=== PATIENT | female | born 1935 | race Caucasian/White ===

== ENCOUNTER 2019-04-24 14:05 | Outpatient (CLI) | payer OTHER, SELFPAY ==
--- NOTE | 2019-04-24 14:09 | ECG_ITS ---
Measurements Intervals [place] Rate: 78 P: 38 IA: 184 QRS: -3 QRSD: 90 T: 30 QT: 368 QTc: 422 Interpretive Statements SINUS RHYTHM DELAYED PRECORDIAL R/S TRANSITION VOLTAGE CRITERIA FOR LVH MINIMAL Q WAVES- LATERAL LEADS BASELINE ARTIFACT- I, II, III, AVR, AVL, AVF BORDERLINE ECG Electronically Signed On 04-24-2019 14:29:31 BEEF SPLITTER by Khadar Jalloh D.O.
[2019-04-24 14:45] LABS: Blood Urea Nitrogen 21 mg/dL (7-17); Calcium 9.2 mg/dL (8.4-10.2); Carbon Dioxide 31 mmol/L (22-30); Chloride 100 mmol/L (98-107); Estimated Glomerular Filt Rate 60; Glucose 114 mg/dL (65-105); Potassium 4.2 mmol/L (3.4-5.0); Sodium 139 mmol/L (137-145)
== END 2019-04-24 14:06 | disposition home or self-care (01) ==
LOC: ANHSURGERY 14:09
PROVIDERS: Anesthesiology; Visit Provider Plastic Surgery
DX: I10 Essential (primary) hypertension (principal); Z79.899 Other long term (current) drug therapy; R94.31 Abnormal electrocardiogram [ECG] [EKG]
CPT/HCPCS: 36415; 80048; 93005

== ENCOUNTER 2019-05-02 00:16 | Day surgery (SDC) | payer OTHER, SELFPAY ==
[2019-04-13 13:02] VITALS: BMI 29.2
--- NOTE | 2019-05-01 21:13 | HP_ITS ---
DATE OF SERVICE: 05/02/2019 DIAGNOSIS: Bilateral carpal tunnel syndrome. HISTORY: The patient is 83. She was referred with a nerve conduction test from November 2018, indicating moderate right carpal tunnel syndrome. She has had the left side operated in 2013. She does not recall making actual improvement after the 2013, surgery and now she has similar symptoms in both hands, which she finds uncomfortable and which are diagnosed as carpal tunnel syndrome. The recent nerve conduction test was only done on the right side. After discussing her complaints, we elected to proceed with a right carpal tunnel release and she understands the risks and possible complications such as infection, nerve injury, numbness, slow recovery to a premorbid condition or no recovery hematoma, bruising. She would like to proceed. ALLERGIES: SHE HAS AN ALLERGY TO PENICILLIN, ERYTHROMYCIN, AND SHE SAYS ALL OF THE OMEPRAZOLE. MEDICATIONS: Current medicines include levothyroxine, losartan, and doxycycline, which she takes for rosacea and indapamide and Restasis. Prior surgeries include the left carpal tunnel release, several D and Cs, and hammertoe repair. She is a nonsmoker. She says she has had very, very mild case of shingles. She has a keloid on scar somewhere. 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 She has a history of blood clots, dry eye, hearing loss. FAMILY HISTORY: Noncontributory. SOCIAL HISTORY: She lives in [place]. She is retired. Does not list a spouse. PHYSICAL EXAMINATION: GENERAL: She is in no distress. VITAL SIGNS: She is cooperative and informative. She is 5 feet 7 inches, weighs 193 pounds. HEENT: Unremarkable. CHEST: Clear to auscultation. HEART: Regular rate and rhythm by palpation ABDOMEN: Soft, nontender. EXTREMITIES: Specifically reveals on the right Tinel'S at the wrist. Froment's test positive. Provocative pain in the forearm. Tinel's somewhat at the elbow and the wrist. Compression test was positive. She has similar findings on the left side. DIAGNOSIS: Bilateral carpal tunnel syndrome. PLAN: Right open carpal tunnel release under MAC anesthetic. D I MT: Nathalie
[2019-05-02 07:08] VITALS: BP 141/57; PULSE 66; RESP 20; TEMP 36.6; O2SAT 97
[2019-05-02] MEDS: LACTATED RINGERS 1,000 ML 30 ML IV CONT (07:15)
--- NOTE | 2019-05-02 07:19 | WPDHPUPDATE1 ---
History and Physical Update Update Date/Time: 05/02/19 07:19 History and Physical has been reviewed, including an updated exam of the patient. There are NO changes in the patient's condition. Risks, benefits, and alternatives have been discussed and questions answered. Patient agrees to proceed with procedure.
--- NOTE | 2019-05-02 07:26 | WPDANESEPPF ---
Anes - Initial Pre Proc Eval Procedure: Operation Date: 05/02/19 09:15 Proposed Procedures p Right Open Carpal Tunnel Release - Andry Del Cid MD Date/Time: 05/02/19 07:26 Surgeon: Andry Del Cid MD Pre Op Diagnosis: Right Carpal Tunnel Syndrome Patient Data Age: 83 Gender: F Height: 1.71 m Weight: 86.4 kg Last Vital Signs Temp 36.6 C 05/02/19 07:08 Pulse 66 05/02/19 07:08 Resp 20 05/02/19 07:08 BP 141/57 H 05/02/19 07:08 Pulse Ox 97 05/02/19 07:08 Allergies Allergy/AdvReac Type Severity Reaction Status Date / Time erythromycin base AdvReac Mild Nausea Unverified 05/02/19 07:02 esomeprazole AdvReac Mild Nausea and Unverified 05/02/19 07:02 Vomiting and diarrhea Penicillins AdvReac Mild Rash Unverified 05/02/19 07:02 Home Medications Medication Instructions Recorded Confirmed Type acetaminophen [Tylenol Arthritis 1,300 mg PO DAILY PRN 04/13/19 05/02/19 History Pain] coQ10 (ubiquinol) 200 mg PO DAILY 04/13/19 05/02/19 History doxycycline hyclate 20 mg PO Q12H 04/13/19 05/02/19 History glucosamine sulfate [Glucosamine] 500 mg PO TID 04/13/19 05/02/19 History indapamide 1.25 mg PO DAILY 04/13/19 05/02/19 History krill oil 500 mg PO BID 04/13/19 05/02/19 History lactobacillus combination no.4 3,000 mmu cells PO DAILY 04/13/19 05/02/19 History [Probiotic] levothyroxine 88 mcg PO DAILY 04/13/19 05/02/19 History losartan 100 mg PO DAILY 04/13/19 05/02/19 History vitamin E 400 unit PO DAILY 04/13/19 05/02/19 History Patient hx anesthesia problems: none Family hx anesthesia problems: none PMFSH Past Medical History Medical History (Updated 05/01/19 @ 09:15 by Fabian Chery DO) Chronic bronchitis Hypertension Hypothyroidism Osteoarthritis Surgical History Surgical History (Updated 05/01/19 @ 09:15 by EYAD Smith History of tonsillectomy Social History Social History Gender identity (if verbalized by the patient): Female Anes - Eval Final PreProcedure Day of Procedure 05/02/19 07:26 Patient weight: overweight Heart: regular rate and rhythm Lungs: clear to auscultation and normal air movement Airway: Mallampati scale class II Neurological: alert and oriented Last oral intake: >/= 8 hours ASA classification: III Emergent: no Anesthetic plan: proceed Anesthesia type and monitoring: general GIVS and standard monitoring Informed Consent: The patient's anesthetic plan and its attendant risks and benefits were discussed with the patient/family/POA. Questions were solicited and answers provided to the satisfaction of the patient/family/POA.
[2019-05-02] MEDS: LIDO 1%/EPINEPHRINE 1:100,000 20 ML VIAL 4 ML INFILTRATE (07:53)
--- NOTE | 2019-05-02 07:57 | P.OPB_ITS ---
Procedure Note - Brief Procedure Note - Brief Date of procedure: 05/02/19 Pre-op diagnosis: Right Carpal Tunnel Syndrome Post-op diagnosis: same Procedure performed: R OCTR Anesthesia: MAC Surgeon: Andry Del Cid MD Family Law Attorney: Arcenio Estimated blood loss (mL): 0 Tourniquet time (min): 8 Drains: No Packing: No Pathology: none sent Complications: No immediate complications Condition: stable Disposition: same day
[2019-05-02 08:00] VITALS: BP 98/52; PULSE 62; RESP 14; O2SAT 93
--- NOTE | 2019-05-02 08:13 | P.OP_ITS ---
Procedure Note - Detailed Date of procedure: 05/02/19 Pre-op diagnosis: Right Carpal Tunnel Syndrome Post-op diagnosis: same Procedure performed: Right open carpal tunnel release. Description of procedure: The appropriate extremity was marked while the patient was in holding area. She was taken to the operating room and placed supine on the operating table. A time-out was held and confirmed. She was given IV sedation as the extremity was prepped and draped in usual fashion. The site was remarked for the incision and locally infiltrated with 1% lidocaine with epinephrine. The tourniquet was elevated to 250 mmHg. The incision was made in the palm as marked. Dissection was carried bluntly through the subcutaneous tissue to the palmar fascia. This and the carpal ligament were incised with a 15. Blade. Under 3 point retraction the ligament was divided distally and proximally for complete release. There was no unusual anatomy. The skin was closed with interrupted 5 0 nylon suture. The usual bandage with Wu wrap was applied. The tourniquet was released. She was discharged with instructions in wound care and follow-up and a prescription for tramadol 50 mg 8. . Surgeon: Andry Del Cid MD Radio Television Announcer: Arcenio
[2019-05-02 08:25] VITALS: BP 108/89; PULSE 64; RESP 14; O2SAT 94
[2019-05-02 08:50] VITALS: BP 135/59; PULSE 56; RESP 14
== END 2019-05-02 09:01 | disposition home or self-care (01) ==
PROVIDERS: Visit Provider Plastic Surgery
PROC: (CPT 64721; principal; 2019-05-02 09:15)
DX: G56.01 Carpal tunnel syndrome, right upper limb (principal); I10 Essential (primary) hypertension; E03.9 Hypothyroidism, unspecified; M19.90 Unspecified osteoarthritis, unspecified site
CPT/HCPCS: 64721; A9270; J1100; J1940; J2405; J2704; J7120

== ENCOUNTER 2021-07-10 10:47 | Emergency (ER) | payer OTHER, SELFPAY ==
[2021-07-10 10:57] VITALS: BP 184/81; PULSE 73; RESP 16; TEMP 36.4; O2SAT 98
--- NOTE | 2021-07-10 10:58 | ED.EXTPRO ---
HPI - Extremity Problem General Chief complaint: Extremity Problem,Nontraumatic Stated complaint: Lt Great Toe Pain Time Seen by Provider: 07/10/21 10:58 Source: patient, RN notes reviewed and old records reviewed Mode of arrival: ambulatory Limitations: no limitations History of Present Illness HPI Narrative: 86-year-old female presents to [facility] with left great toe pain which she describes as feeling like she has electric shock in her great toe. Patient states she has had this off and on for about a year and last night she was unable to rest due to her discomfort. She relays history of spinal stenosis, herniated disc in her lumbar region bone, spurs in her back and history of peripheral neuropathy. She sees podiatry every few months to have her toenails trimmed denies any history of diabetes no known history of gout or any recent or past injury to her left great toe. Patient has had nail removed from left great toe. Patient takes Tylenol arthritis for her discomfort daily. MD Complaint: extremity pain Onset (ago): year(s) (States for about 1 year with increased pain 1 day) Pain Consistency: intermittent and colicky Location: left and toe (Great toe) Severity scale (1-10): 8 Quality: burning and stabbing Radiation: none Relieving factors: nothing Exacerbating factors: nothing Associated symptoms: denies other symptoms Context: other (neuropathy to feet, history of spinal stenosis) Related Data Home Medications Medication Instructions Recorded Confirmed Probiotic 3,000 mmu cells PO DAILY 04/13/19 07/10/21 acetaminophen [Tylenol Arthritis 1,300 mg PO DAILY PRN 04/13/19 07/10/21 Pain] coQ10 (ubiquinol) 200 mg PO DAILY 04/13/19 07/10/21 glucosamine sulfate [Glucosamine] 500 mg PO TID 04/13/19 07/10/21 indapamide 1.25 mg PO DAILY 04/13/19 07/10/21 krill oil 500 mg PO BID 04/13/19 07/10/21 levothyroxine 88 mcg PO DAILY 04/13/19 07/10/21 losartan 100 mg PO DAILY 04/13/19 07/10/21 vitamin E 400 unit PO DAILY 04/13/19 07/10/21 cyclosporine [Restasis] 2 drp EACH EYE DAILY 07/10/21 07/10/21 Allergies Allergy/AdvReac Type Severity Reaction Status Date / Time erythromycin base AdvReac Mild Nausea Verified 07/10/21 10:52 esomeprazole AdvReac Mild Nausea and Verified 07/10/21 10:52 Vomiting and diarrhea Penicillins AdvReac Mild Rash Verified 07/10/21 10:52 Review of Systems Review of Systems: CONSTITUTIONAL: Denies fever, chills, or sweats. EYES: Denies visual changes, redness, or discharge. ENT: Denies rhinorrhea, congestion, sore throat, or otalgia. CARDIOVASCULAR: Denies chest pain, palpitations, or edema. RESPIRATORY: Denies cough or dyspnea. GASTROINTESTINAL: Denies abdominal pain, nausea, vomiting, or diarrhea. Reports some constipation GENITOURINARY: Denies dysuria or hematuria. SKIN: Denies rash or itching. MUSCULOSKELETAL: Chronic back pain, left great toe pain, or myalgia. NEUROLOGIC: Denies headache, numbness, or weakness. Peripheral neuropathy lower extremities PSYCHIATRIC: Denies anxiety or depression. Is anxious All systems reviewed & are unremarkable except as noted in HPI and below PMFSH Past Medical History Medical History (Updated 07/11/21 @ 00:00 by [facility] Dawoo) Chronic back pain Chronic bronchitis History of IBS Hypertension Hypothyroidism Kidney stones Osteoarthritis Peripheral neuropathy Uterine polyp removed Surgical History Surgical History (Updated 07/10/21 @ 11:51 by Gianna Fuentes NP) History of local excision of skin lesion History of tonsillectomy S/P arthroscopic surgery of left knee Family History Family History (Updated 07/10/21 @ 11:52 by Gianna Fuentes NP) Other Cancer Cerebrovascular accident Diabetes mellitus Social History Social History (Updated 07/10/21 @ 11:52 by Gianna Fuentes NP) Smoking status: Former smoker Additional smoking assessment comments: quit 60 years ago Alcohol intake: current Alcohol use details:
[2021-07-10 11:18] VITALS: BP 160/78
== END 2021-07-10 11:25 | disposition home or self-care (01) ==
PROVIDERS: Emergency Provider Registered Nurse; PCP Internal Medicine
DX: M79.675 Pain in left toe(s) (principal); G62.9 Polyneuropathy, unspecified; Z87.891 Personal history of nicotine dependence; I10 Essential (primary) hypertension; E03.9 Hypothyroidism, unspecified; M19.90 Unspecified osteoarthritis, unspecified site
CPT/HCPCS: 99213; G0463

== ENCOUNTER 2022-08-14 10:19 | Emergency (ER) | payer OTHER, SELFPAY ==
--- NOTE | 2022-08-14 10:31 | ED.LOWEXIN ---
HPI - Extremity Injury (Lower) General Chief Complaint: Extremity Problem,Nontraumatic Stated Complaint: toe discomfort Time Seen by Provider: 08/14/22 10:32 Source: patient Mode of arrival: ambulatory Limitations: no limitations History of Present Illness HPI Narrative: Patient is a 87-year-old female that presents with left big toe wound. Patient states last she picked the scab off and had a large amount of pus drained from wound. Patient saw pricing intern on Tuesday and was told to wash foot twice a day with warm soapy water and apply antibiotic ointment. Patient has been doing that since. Patient states last night she woke up with toe pain and medial toe redness. Concern for worsening infection. Denies any drainage from toe, swelling or red streaking up toe or foot at this time. Denies any fever chills. Related Data Home Medications Medication Instructions Recorded Confirmed glucosamine sulfate 500 mg tablet 500 mg PO TID 04/13/19 08/14/22 (Glucosamine) indapamide 1.25 mg tablet 1.25 mg PO DAILY 04/13/19 08/14/22 krill oil 500 mg capsule 500 mg PO BID 04/13/19 08/14/22 levothyroxine 88 mcg tablet 88 mcg PO DAILY 04/13/19 08/14/22 losartan 100 mg tablet 100 mg PO DAILY 04/13/19 08/14/22 vitamin E 268 mg (400 unit) capsule 400 unit PO DAILY 04/13/19 08/14/22 Allergies Allergy/AdvReac Type Severity Reaction Status Date / Time erythromycin base AdvReac Mild Nausea Verified 08/14/22 10:42 esomeprazole AdvReac Mild Nausea and Verified 08/14/22 10:42 Vomiting and diarrhea Penicillins AdvReac Mild Rash Verified 08/14/22 10:42 Review of Systems Review of Systems: All systems reviewed & are unremarkable except as noted in HPI and below Constitutional: Constitutional: Denies body ache(s), Denies chills, Denies fatigue, Denies fever(s), Denies headache(s), Denies malaise and Denies weakness Eyes: Eyes: Denies blurry vision, Denies irritation and Denies loss of vision ENT: Denies otalgia, Denies headache(s), Denies nasal discharge, Denies sinus pain and Denies sore throat Cardiovascular: Cardiovascular: Denies chest pain, Denies irregular heart rhythm and Denies dyspnea Respiratory: Respiratory: Denies dyspnea Gastrointestinal: Gastrointestinal: Denies abdominal pain, Denies melena, Denies hematochezia, Denies diarrhea, Denies nausea and Denies vomiting Musculoskeletal: Musculoskeletal: Denies back pain, Denies myalgias and Denies arthralgias Integumentary/Breasts: Skin/Breast: Denies pruritus, Denies rash and Reports wounds Neurologic: Denies headache(s), Denies loss of vision and Denies weakness Psychiatric: Psychiatric: Reports no additional psychiatric complaints Endocrine: Endocrine: Denies fatigue [facility] Past Medical History Medical History (Updated 08/14/22 @ 10:53 by Gladys Servin, PRINCESS) Chronic back pain Chronic bronchitis History of IBS Hypertension Hypothyroidism Kidney stones Osteoarthritis Peripheral neuropathy Uterine polyp removed Surgical History Surgical History (Updated 07/10/21 @ 11:51 by Gianna Fuentes NP) History of local excision of skin lesion History of tonsillectomy S/P arthroscopic surgery of left knee Family History Family History (Updated 07/10/21 @ 11:52 by Gianna Fuentes NP) Other Cancer Cerebrovascular accident Diabetes mellitus Social History Social History (Updated 07/10/21 @ 11:52 by Gianna Fuentes NP) Smoking status: Former smoker Additional smoking assessment comments: quit 60 years ago Alcohol intake: current Alcohol use details: rare Substance use type: does not use Gender identity (if verbalized by the patient): Female Comments At time of signature, agree with nursing past medical, surgical, social and family history. There is no relevant family history pertinent to the presenting complaint. Exam Const: General: cooperative, healthy appearing, comfortable, no acute distress and well nou
[2022-08-14 10:37] VITALS: BP 133/69; PULSE 83; RESP 18; TEMP 36.4; O2SAT 97
== END 2022-08-14 10:58 | disposition home or self-care (01) ==
PROVIDERS: Emergency Provider Nurse Practitioner Family; PCP Internal Medicine
DX: L02.612 Cutaneous abscess of left foot (principal); Z87.891 Personal history of nicotine dependence; I10 Essential (primary) hypertension; E03.9 Hypothyroidism, unspecified; M19.90 Unspecified osteoarthritis, unspecified site; G62.9 Polyneuropathy, unspecified
CPT/HCPCS: 99213; G0463

== ENCOUNTER 2023-12-11 17:39 | Emergency (ER) | payer OTHER, SELFPAY ==
--- NOTE | ~2023-12-11 | XR_ITS ---
XR chest 2V Ordering provider: Herman Barone APRN History: 88 years Female with . fever, chest burning . Comparison: February 16, 2018 FINDINGS: MEDIASTINUM: The cardiac silhouette is not enlarged. LUNGS: No infiltrates, effusions or pneumothorax. Prominent markings in the perihilar areas. OTHER: No free air under the diaphragm. Severe kyphosis with degenerative changes of the spine. Dextroscoliosis. IMPRESSION: No acute cardiopulmonary pathology. Reviewed, dictated and finalized at location A.
--- NOTE | 2023-12-11 17:47 | ED.URI ---
HPI - URI/Sore Throat General Chief Complaint: Fever Stated Complaint: Fever , Chest Burning Time Seen by Provider: 12/11/23 18:05 Source: patient Mode of arrival: ambulatory Limitations: no limitations History of Present Illness HPI Narrative: Eufemia is an 88-year-old female patient presenting to the clinic today with complaints of feeling feverish, cough, and chest burning. She reports that her symptoms started last night when she felt as though there was something stuck in her throat she was attempting to cough. States that this cause burning in her chest. She has tried Tylenol and Mucinex without relief. Denies any shortness of breath currently. Cough is nonproductive. MD elicited complaint: cough and other (Chest burning, feverish) Related Data Home Medications Medication Instructions Recorded Confirmed glucosamine sulfate 500 mg tablet 500 mg PO TID 04/13/19 12/11/23 (Glucosamine) indapamide 1.25 mg tablet 1.25 mg PO DAILY 04/13/19 12/11/23 krill oil 500 mg capsule 500 mg PO BID 04/13/19 12/11/23 levothyroxine 88 mcg tablet 88 mcg PO DAILY 04/13/19 12/11/23 losartan 100 mg tablet 100 mg PO DAILY 04/13/19 12/11/23 vitamin E 268 mg (400 unit) capsule 400 unit PO DAILY 04/13/19 12/11/23 Allergies Allergy/AdvReac Type Severity Reaction Status Date / Time erythromycin base AdvReac Mild Nausea Verified 12/11/23 18:01 esomeprazole AdvReac Mild Nausea and Verified 12/11/23 18:01 Vomiting and diarrhea Penicillins AdvReac Mild Rash Verified 12/11/23 18:01 Review of Systems Review of Systems: Pertinent positives per HPI. Patient denies any fever, chills, rash, headache, visual changes, dizziness, cough, shortness of breath, chest pain, palpitations, nausea, vomiting, diarrhea, constipation, abdominal pain, or any urinary issues. [facility] Past Medical History Medical History (Updated 12/11/23 @ 18:48 by Herman Barone APRN) Chronic back pain Chronic bronchitis History of IBS Hypertension Hypothyroidism Kidney stones Osteoarthritis Peripheral neuropathy Uterine polyp removed Surgical History Surgical History History of local excision of skin lesion History of tonsillectomy S/P arthroscopic surgery of left knee Family History Family History Other Cancer Cerebrovascular accident Diabetes mellitus Social History Social History Smoking status: Former smoker Additional smoking assessment comments: quit 60 years ago Alcohol intake: current Alcohol use details: rare Substance use type: does not use Gender identity (if verbalized by the patient): Female Comments At the time of my signature, I reviewed and agree with the nursing past medical, surgical, social, and family history. There is no relevant family history pertinent to the patient complaint. Exam Narrative: General: Well-developed, obese, in no apparent distress Head: Normocephalic, atraumatic Eyes: Pupils equally round and reactive to light bilaterally, EOM intact, sclera and conjunctive clear, no discharge, lids normal Ears: TMs intact and clear, ear canals clear, no drainage, grossly hearing normal. Nose: Nares patent, no discharge, no inflammation, no sinus tenderness. Mouth: Oral pharynx without lesions or masses, good dentition, MMM. Neck: Supple, trachea midline, no enlargement of anterior or posterior cervical nodes, no thyroid masses or goiter palpable. Cardio: Regular rate and rhythm, s1 and s2 normal, no murmur appreciated. Resp: Clear to auscultation bilaterally, no rhonchi, rales, wheezing or rubs Course Course Emergency Course: Portions of this record may have been created with voice recognition software. Level of Care: Express [facility] Visit Vital Signs Vital signs: Vital signs reviewed CAROL - URI/Ira
[2023-12-11 17:56] VITALS: BP 143/73; PULSE 81; RESP 16; TEMP 37.1; O2SAT 97
--- NOTE | 2023-12-11 18:00 | ECG_ITS ---
Test Date: 2023-12-11 18:09:58 Measurements Intervals [place] Rate: 79 P: 50 ND: 190 QRS: 12 QRSD: 90 T: 59 QT: 364 QTc: 418 Interpretive Statements SINUS RHYTHM NORMAL ECG No previous ECG available for comparison Electronically Signed On 12-12-2023 10:40:52 CDT by Zack Jackson M.D.
[2023-12-11 18:21] LABS: EDCOVIDSCREEN Negative (Negative); EDINFLUASCREEN Negative (Negative); EDINFLUBSCREEN Negative (Negative)
--- NOTE | 2023-12-11 18:45 | PC.NURSE ---
PT REFUSED MAALOX SAYING IT ALWAYS MAKES ME THROW UP. 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
== END 2023-12-11 18:51 | disposition home or self-care (01) ==
PROVIDERS: Emergency Provider Nurse Practitioner Family; PCP Internal Medicine
DX: K21.9 Gastro-esophageal reflux disease without esophagitis (principal); R05.1 Acute cough; Z87.09 Personal history of other diseases of the respiratory system; Z20.822 Contact with and (suspected) exposure to COVID-19; Z87.891 Personal history of nicotine dependence; I10 Essential (primary) hypertension; E03.9 Hypothyroidism, unspecified; M19.90 Unspecified osteoarthritis, unspecified site; G62.9 Polyneuropathy, unspecified
CPT/HCPCS: 71046; 87426; 87804; 93005; 99213; G0463

== ENCOUNTER 2023-12-25 10:08 | Emergency (ER) | payer OTHER, SELFPAY ==
--- NOTE | ~2023-12-25 | XR_ITS ---
EXAMINATION: XR chest 2V DATE: 12/25/2023 11:03 INDICATION: Cough and low-grade fever. Recent Covid infection. TECHNIQUE: PA and lateral views of the chest were obtained. COMPARISON: Chest radiograph dated 12/11/2023 FINDINGS: The lungs remain clear with no focal airspace opacities, pulmonary edema, pleural effusion or pneumot horax. The cardiomediastinal silhouette is normal. Loose osteochondral body at the left deep subscapu lar recess of the left shoulder. Thoracic dextrocurvature with moderate spondylosis. IMPRESSION: 1. No acute cardiopulmonary disease. Reviewed, dictated and finalized at location A. L [employer]ESS OPERATOR
--- NOTE | 2023-12-25 10:21 | ED_ITS ---
HPI - URI/Sore Throat General Chief Complaint: Upper Respiratory Infection Stated Complaint: fever Time Seen by Provider: 12/25/23 10:30 Source: patient Mode of arrival: ambulatory Limitations: no limitations History of Present Illness HPI Narrative: Eufemia is an 88-year-old female patient presenting to the clinic today with complaints of low-grade fever and cough. Fever has been 99.8 to 100.3? F. She was seen in the clinic 2 weeks ago and had a chest x-ray with COVID and influenza testing at time. All the testing was negative. Few days later she tested positive for COVID and her primary care doctor sent and doxycycline and Paxlovid. Patient reports that she did not take either these medications. She began feeling better however over the last 48 hours she became ill again and her daughter wondered to come in to be evaluated. Also reports having a itchy rash to her face and neck that has been going on for several weeks. Has apply triple antibiotic ointment to the rash without relief. The rash is itchy and red with a small blister to the left inferior periorbital area MD elicited complaint: cough, nasal congestion and other (Rash) Related Data Home Medications Medication Instructions Recorded Confirmed glucosamine sulfate 500 mg tablet 500 mg PO TID 04/13/19 12/25/23 (Glucosamine) indapamide 1.25 mg tablet 1.25 mg PO DAILY 04/13/19 12/25/23 krill oil 500 mg capsule 500 mg PO BID 04/13/19 12/25/23 levothyroxine 88 mcg tablet 88 mcg PO DAILY 04/13/19 12/25/23 losartan 100 mg tablet 100 mg PO DAILY 04/13/19 12/25/23 vitamin E 268 mg (400 unit) capsule 400 unit PO DAILY 04/13/19 12/25/23 Allergies Allergy/AdvReac Type Severity Reaction Status Date / Time erythromycin base AdvReac Intermediate Nausea and Verified 12/25/23 10:19 Vomiting esomeprazole AdvReac Intermediate Nausea and Verified 12/25/23 10:19 Vomiting and diarrhea Penicillins AdvReac Mild Rash Verified 12/25/23 10:19 Review of Systems Review of Systems: Pertinent positives per HPI. Patient denies any, headache, visual changes, dizziness, shortness of breath, chest pain, palpitations, nausea, vomiting, diarrhea, constipation, abdominal pain, or any urinary issues. PMFSH Past Medical History Medical History (Updated 12/25/23 @ 11:35 by Herman Barone APRN) Chronic back pain Chronic bronchitis History of IBS Hypertension Hypothyroidism Kidney stones Osteoarthritis Peripheral neuropathy Uterine polyp removed Surgical History Surgical History History of local excision of skin lesion History of tonsillectomy S/P arthroscopic surgery of left knee Family History Family History Other Cancer Cerebrovascular accident Diabetes mellitus Social History Social History Smoking status: Former smoker Additional smoking assessment comments: quit 60 years ago Alcohol intake: current Alcohol use details: rare Substance use type: does not use Gender identity (if verbalized by the patient): Female Comments At the time of my signature, I reviewed and agree with the nursing past medical, surgical, social, and family history. There is no relevant family history pertinent to the patient complaint. Exam Narrative: General: Well-developed, well nourished, in no apparent distress Head: Normocephalic, atraumatic Eyes: Pupils equally round and reactive to light bilaterally, EOM intact, sclera and conjunctive clear, no discharge, lids normal Ears: TMs intact and clear, ear canals clear, no drainage, grossly hearing normal. Nose: Nares patent, clear nasal discharge, no inflammation, no sinus tenderness. Mouth: Oral pharynx without lesions or masses, good dentition, MMM. Neck: Supple, trachea midline, no enlargement of anterior or posterior cervical nodes, no thyroid masses or goiter palpable. Cardio: Regular rate and rhythm, s1 and s2 normal, no murmur appreciated. Resp: Diminished in the bases otherwise clear, no rhonchi, rales, wheezing or rubs Integumentary: [place], warm, and dry, intact without lesion, red raised itchy rash around the eyes, forehead, and neck. Course Course Emergency Course: Portions of this record may have been created with voice recognition software. Level of Care: Express Care Visit Vital Signs Vital signs: Vital signs reviewed MDM - URI/Sore Throat MDM Narrative Medical decision making narrative: At the time of visit patient is resting comfortably on the exam table. Patient appears to be nontoxic. Diagnostics: Chest x-rays negative for any sign pneumonia. Plan: I suspect patient has a dermatitis rash to the face and neck as well as bronchitis. Will send in prescription for prednisone and albuterol inhaler. Supportive measures were discussed with the patient and they voiced understanding discharge instructions and agrees to treatment plan. Return precautions reviewed Differential Diagnosis Differential diagnosis: Likely upper respiratory infection, otitis media, sinusitis, viral infection, bronchitis, influenza, pharyngitis and other (COVID) Imaging Data Radiologist's impression: ITS Impressions Chest X-Ray 12/25/23 11:17 IMPRESSION: 1. No acute cardiopulmonary disease. Discharge Plan Discharge Clinical Impression: Bronchitis, Dermatitis Patient Disposition: Home, Self-Care Condition: Stable Instructions: Acute Bronchitis (ED), Dermatitis (ED) Additional Instructions: Take prescription medications only as prescribed-prednisone and albuterol inhaler. May apply 1% hydrocortisone cream to your face and neck twice daily. Increase fluids and stay well hydrated Tylenol/motrin for pain/fever Flonase and OTC antihistamines as directed Vicks vapor rub to open sinuses Sinus rinses for congestion Cepacol spray, cough drops, throat lozenges, warm tea with honey/lemon, gargle salt water to soothe throat BRAT diet for diarrhea Clear liquids x 24 hours then advance as tolerated for nausea/vomiting Go to the ED if you develop a worsening in your condition- high fever not controlled by Tylenol or Motrin, dehydration, weakness, lethargy, shortness of breath, or chest pain. Follow up with your PCP in 3-5 days if symptoms persist. Prescriptions: New prednisone 20 mg tablet 40 mg PO DAILY 5 Days Qty: 10 0RF albuterol sulfate 90 mcg/actuation HFA aerosol inhaler 2 puff inhalation Q4-6H PRN (Reason: shortness of breath or wheezing) 30 Days Qty: 8.5 0RF No Action gabapentin 100 mg capsule 100 mg PO HS Qty: 30 0RF Rx Instructions: Take at bedtime famotidine [Pepcid] 20 mg tablet 20 mg PO DAILY 30 Days Qty: 30 0RF glucosamine sulfate [Glucosamine] 500 mg Tablet 500 mg PO TID levothyroxine 88 mcg Tablet 88 mcg PO DAILY indapamide 1.25 mg Tablet 1.25 mg PO DAILY losartan 100 mg Tablet 100 mg PO DAILY vitamin E 400 unit Capsule 400 unit PO DAILY krill oil 500 mg Capsule 500 mg PO BID Follow-up/Referrals: Keith,Vikas Busby MD [Primary Care Provider] - Time of Disposition: 11:35 Quality NIHSS Nursing Documentation ED NIHSS nursing documentation: reviewed/agree
[2023-12-25 10:22] VITALS: BP 145/86; PULSE 97; RESP 16; TEMP 36.5; O2SAT 99
== END 2023-12-25 11:37 | disposition home or self-care (01) ==
PROVIDERS: Emergency Provider Nurse Practitioner Family; PCP Internal Medicine
DX: J40 Bronchitis, not specified as acute or chronic (principal); L30.9 Dermatitis, unspecified; Z87.891 Personal history of nicotine dependence; I10 Essential (primary) hypertension; E03.9 Hypothyroidism, unspecified; M19.90 Unspecified osteoarthritis, unspecified site; G62.9 Polyneuropathy, unspecified
CPT/HCPCS: 71046; 99213; G0463